=== PATIENT | male | born 1970 ===

== ENCOUNTER 2023-04-08 15:48 | Emergency (ER) | payer SELFPAY ==
[2023-04-08 16:29] VITALS: BP 121/85; PULSE 96; RESP 18; TEMP 97.9; BMI 29.2
== END 2023-04-08 16:40 | disposition home or self-care (01) ==
LOC: FER 15:48
DX: R20.0 Anesthesia of skin (principal); R20.2 Paresthesia of skin; R73.9 Hyperglycemia, unspecified
CPT/HCPCS: 82962; 99282-25